=== PATIENT | male | born 1970 | race Caucasian/White ===

== ENCOUNTER 2023-04-18 07:48 | Emergency (ER) | payer BC ==
[~2023-04-18] VITALS: Ht 177.8 cm; Wt 90.7 kg
[2023-04-18 07:50] VITALS: BP 113/84; PULSE 99; RESP 18; TEMP 97.4; O2SAT 97
--- NOTE | 2023-04-18 07:52 | NUR ---
[facility] BLS RUN, PATIENT BIBA TO ER BED 06(PREBOOK)
--- NOTE | 2023-04-18 08:01 | NUR ---
RADIOLOGY AT BS TO PERFORM BS X-RAY.
--- NOTE | 2023-04-18 08:19 | NUR ---
DR. JESUS AT THE BS EVALUATING PT.
[2023-04-18] MEDS ORDERED: LIDOCAINE 1% 500 MG/ 50 ML VIAL INJ ONE (08:25)
[2023-04-18] MEDS ORDERED: HYDROcodone/APAP 5/325 MG 1 TAB TAB PO ONE (08:25)
[2023-04-18] MEDS ORDERED: LIDOCAINE MPF 1% 0 ML ONE (08:33)
--- NOTE | 2023-04-18 08:57 | NUR ---
DR. JESUS INFORMED THE PT THAT HE WOULD NEED TO BE ADMITTED INTO THE HOSPITAL FOR FOR SURGICAL REPAIR OF HIS OPEN DISPLACED 5TH METACARPAL.
--- NOTE | 2023-04-18 09:00 | NUR ---
WOUND TO R 5TH DIGIT, IRRIGATED AND WOUND COVERED WITH NON ADHERENT DRESSING.
[2023-04-18] MEDS ORDERED: ceFAZolin 1,000 MG VIAL ONE (09:25)
--- NOTE | 2023-04-18 09:34 | NUR ---
CALLED REPORT TO CHARGE NURSE YESIKA YU AT [facility]. PT IS BEING TRANSFERRED BY PD TO HOSPITAL ER TO ER. MD JESUS AWARE OF PD TRANSFER OF PT. PT REMAINS IN POLICE CUSTODY. ANCEF INFUSING AT THIS TIME.
[2023-04-18] MEDS ORDERED: IBUPROFEN 600 MG TAB PO ONE (10:15)
--- NOTE | 2023-04-18 10:15 | NUR ---
MD JESUS AT INFORMING PT THAT HE IS GOING TO ORDER A SPLINT FOR COMFORT AND A MOTRIN FOR HIS PAIN. PT NOW TO BE DISCHARGED AND TAKEN TO [facility] BY POLICE VEHICLE.
--- NOTE | 2023-04-18 10:32 | NUR ---
SIDNEY QUINN CURRENTLY APPLYING ULNA GUTTER SPLINT.
[2023-04-18 10:37] VITALS: BP 125/82; PULSE 84; RESP 16; TEMP 98.3; O2SAT 97
--- NOTE | 2023-04-18 10:37 | NUR ---
Patient discharged with v/s stable. Written and verbal after care instructions given and explained. PD OFFICER Hemalatha SANTOYO PROVIDED WITH BERTA BROWNE. Patient verbalized understanding. Ambulatory with in custody. All questions addressed prior to discharge. PT TO BE TRANSPORTED TO [facility] BY OFFICER Hemalatha SANTOYO SERIAL #: [id number] [place] [employer]. ER AND CHARGE NURSE GIGI WERE PROVIDED REPORT AND EXPECTING PT.
== END 2023-04-18 10:37 | disposition home or self-care (01) ==
LOC: MED 07:48
DX: S62.396B Other fracture of fifth metacarpal bone, right hand, initial encounter for open fracture (principal); I10 Essential (primary) hypertension; Z02.89 Encounter for other administrative examinations; Z86.718 Personal history of other venous thrombosis and embolism; W22.8XXA Striking against or struck by other objects, initial encounter; Y93.89 Activity, other specified; Y92.89 Other specified places as the place of occurrence of the external cause; Y99.8 Other external cause status
CPT/HCPCS: 29125; 73130; 96365; 99284; J0690; Q0092; J2001